=== PATIENT | male | born 1955 | race Caucasian/White ===

== ENCOUNTER → 2016-03-06 | Outpatient (CLI) | payer OTHER ==
--- NOTE | 2016-03-06 15:29 | XR ---
EXAMINATION TYPE: XR cervical spine comp DATE OF EXAM: 03/06/2016 3:24 PM COMPARISON: NONE HISTORY: Pain Odontoid, frontal, lateral, and bilateral oblique views of the cervical spine are submitted. The odontoid is intact. There are no compression deformities. The prevertebral soft tissue structur es are within normal limits. Calcification soft tissue the neck likely related carotid artery. Emphy sematous changes involving the lung apices. Postsurgical change is seen at levels L4-C6.. Anterior osteophytes seen at levels C2-C4. Prevertebral soft tissue structures are within normal limits. Facet arthropathy at all levels. IMPRESSION: 1. Postsurgical change in anatomic alignment 2. Multilevel facet arthropathy and hypertrophic spur formation with ankylosis noted at C6-C7.
--- NOTE | 2016-03-06 15:30 | XR ---
EXAM TYPE: LUMBAR SPINE X RAY SERIES COMPARISON: NONE HISTORY: Pain FINDINGS: Alignment is anatomic. The pedicles are intact. The transverse processes are intact. There is no s pondylolysis or spondylolisthesis. Hypertrophic changes are seen at all levels with severe facet art hropathy at levels L4-S1. Mild degenerative disc disease at levels L2-L4 with moderate to severe nolasco ges L4-5. Spina bifida occulta lumbosacral junction. IMPRESSION: 1. Multilevel degenerative disc disease with severe changes at levels L4-L5. 2. Multilevel facet arthropathy..
== END | disposition home or self-care (01) ==
LOC: RADXRMAIN 14:58
PROVIDERS: ATTEND Family Medicine
DX: M51.36 Other intervertebral disc degeneration, lumbar region (principal); M46.86 Other specified inflammatory spondylopathies, lumbar region; M46.82 Other specified inflammatory spondylopathies, cervical region; M46.02 Spinal enthesopathy, cervical region; M43.22 Fusion of spine, cervical region
CPT/HCPCS: 72050; 72110

== ENCOUNTER → 2016-08-02 | Outpatient (CLI) | payer OTHER ==
[2016-08-02 17:30] LABS: Cholesterol 154 mg/dL (<200); Creatine Kinase 312 U/L (55-170); HDL Cholesterol 65 mg/dL (40-60); Triglycerides 77 mg/dL (<150)
== END | disposition home or self-care (01) ==
LOC: LABWHC1 16:41
PROVIDERS: ATTEND Family Medicine
DX: E78.01 Familial hypercholesterolemia (principal)
CPT/HCPCS: 36415; 80061; 82550

== ENCOUNTER → 2016-09-18 | Outpatient (CLI) | payer OTHER ==
--- NOTE | 2016-09-18 18:11 | CT ---
EXAMINATION TYPE: CT chest w con DATE OF EXAM: 09/18/2016 COMPARISON: NONE HISTORY: Per patient abnormal CXR CT DLP: 370.6 mGycm Automated exposure control for dose reduction was used. CONTRAST: CT scan of the chest is performed with IV Contrast, patient injected with 100 mL of Omnipaque 300. FINDINGS: There is diffuse bullous emphysema that is worse in the right upper lobe. There is consolidation at t he right posterior lung base. There is right pleural effusion. Heart size is normal. There is no tona cardial effusion. There is no mediastinal adenopathy. There is no evidence of aortic aneurysm or dissection. Thoracic a rod is atheromatous. There are no hilar masses. I see no obvious filling defect in the pulmonary art eries. The bony thorax is intact. IMPRESSION: Bullous pulmonary emphysema. Wedge-shaped 5 x 4 cm area of consolidation in the right lo wer lobe with pleural thickening. This probably relates to inflammatory disease. Atherosclerotic vasc ular disease.
== END ==
LOC: RADCTMAIN 17:23
PROVIDERS: ATTEND Family Medicine
DX: J43.9 Emphysema, unspecified (principal); J92.9 Pleural plaque without asbestos; I70.90 Unspecified atherosclerosis
CPT/HCPCS: 71260; Q9967

== ENCOUNTER → 2016-09-24 | Outpatient (CLI) | payer OTHER ==
[2016-09-24 17:18] LABS: Basophils # (A) 0.1 k/uL (0-0.2); Basophils % (A) 1 %; CH 34.3; Eosinophils # (A) 0.4 k/uL (0-0.7); Eosinophils % (A) 5 %; HCT 49.3 % (39.0-53.0); HDW 2.15; HGB 16.4 gm/dL (13.0-17.5); Luc # (Auto) 0.24; Luc % (Auto) 3; Lymphocytes # (A) 2.8 k/uL (1.0-4.8); Lymphocytes % (A) 30 %; MCH 34.7 pg (25.0-35.0); MCHC 33.2 g/dL (31.0-37.0); MCV 104.5 fL (80.0-100.0); Macrocytosis Moderate; Mean Platelet Volume 8.1; Monocytes # (A) 0.6 k/uL (0-1.0); Monocytes % (A) 7 %; Neutrophils % (A) 55 %; RBC 4.72 m/uL (4.30-5.90); RDW 15.4 % (11.5-15.5); WBC 9.2 k/uL (3.8-10.6); WBC (Perox) 8.58
[2016-09-24 18:48] LABS: Erythrocyte Sedimentation Rate 9 mm/hr (0-15)
== END | disposition home or self-care (01) ==
LOC: LABWHC1 16:50
PROVIDERS: ATTEND Family Medicine
DX: J18.1 Lobar pneumonia, unspecified organism (principal)
CPT/HCPCS: 36415; 85025; 85652

== ENCOUNTER 2019-04-25 12:44 | Emergency (ER) | payer OTHER ==
[2019-04-25] MEDS ORDERED: SODIUM CHLORIDE 0.9% 1,000 ML IV STA ×2 (12:45)
[2019-04-25 12:54] VITALS: TEMP 97.7
[2019-04-25 13:08] LABS: Basophils # (A) 0.1 k/uL (0-0.2); Basophils % (A) 1 %; Eosinophils # (A) 0.4 k/uL (0-0.7); Eosinophils % (A) 3 %; HCT 48.1 % (39.0-53.0); HGB 15.6 gm/dL (13.0-17.5); Lymphocytes # (A) 1.8 k/uL (1.0-4.8); Lymphocytes % (A) 17 %; MCH 32.8 pg (25.0-35.0); MCHC 32.4 g/dL (31.0-37.0); MCV 101.2 fL (80.0-100.0); Mean Platelet Volume 9.5; Monocytes # (A) 0.6 k/uL (0-1.0); Monocytes % (A) 6 %; Neutrophils # (A) 7.4 k/uL (1.3-7.7); Neutrophils % (A) 72 %; Platelet Count 188 k/uL (150-450); RBC 4.76 m/uL (4.30-5.90); WBC 10.3 k/uL (3.8-10.6)
--- NOTE | 2019-04-25 13:10 | ED ---
Altered Mental Status HPI - General Chief Complaint: Altered Mental Status Stated Complaint: poss CVA Time Seen by Provider: 04/25/19 12:44 Source: EMS, RN notes reviewed, old records reviewed Mode of arrival: EMS - History of Present Illness Initial Comments: This is a 63-year-old male with an unknown history other than a history of heavy drinking in the past and per old charting a solitary lung nodule was last seen well approximately midnight last night he was found prior to arrival line on his right side of his basement floor. It is unknown how long he was there. Per p aramedics he seems a have left facial droop and right upper extremity hemiplegia he was able move his other extremities somewhat he was confused. Unable answer questions. His glucose was adequate no fever reported. He did have some abrasion on the right side of his face. No other injuries reported this time no other findings. MD Complaint: altered mental status, decreased responsiveness, weakness - Related Data Allergies Allergy/AdvReac Type Severity Reaction Status Date / Time No Known Allergies Allergy Verified 04/25/19 12:46 Review of Systems ROS Statement: Those systems with pertinent positive or pertinent negative responses have been documented in the HPI. ROS Other: All systems not noted in ROS Statement are negative. Limitations: ROS unobtainable due to patients medical condition Past Medical History History of Any Multi-Drug Resistant Organisms: None Reported Past Psychological History: No Psychological Hx Reported Smoking Status: Unknown if ever smoked Past Alcohol Use History: Heavy Past Drug Use History: None Reported General Exam - General Exam Comments Initial Comments: This is a well-developed sec appearing male who was awake confused and unable answer questions. Limitations: language barrier, physical limitation General appearance: anxious, lethargic Head exam: Present: normocephalic (Abrasion seen to the right lateral orbit no active bleeding no step-off or crepitation no suture repair indicated) Eye exam: Present: normal appearance, PERRL, EOMI. Absent: scleral icterus, conjunctival injection, periorbital swelling ENT exam: Present: mucous membranes dry, other (Evidence of some left facial asymmetry compared to the right) Neck exam: Present: normal inspection, full ROM, other (No stridor JVD or bruits). Absent: tenderness, meningismus, lymphadenopathy Respiratory exam: Present: normal lung sounds bilaterally. Absent: respiratory distress, wheezes, rales, rhonchi, stridor Cardiovascular Exam: Present: regular rate, normal rhythm, normal heart sounds. Absent: systolic murmur, diastolic murmur, rubs, gallop, clicks GI/Abdominal exam: Present: soft, normal bowel sounds. Absent: distended, tenderness, guarding, rebound, rigid, bruit, pulsatile mass Extremities exam: Present: normal capillary refill. Absent: full ROM (Right upper extremity is flaccid with some evidence of decerebrate posturing), tenderness, pedal edema, joint swelling, calf tenderness Back exam: Present: normal inspection Neurological exam: Present: alert, altered, motor sensory deficit. Absent: CN II-XII intact Psychiatric exam: Present: other (Unable to evaluate) Skin exam: Present: warm, dry, normal color. Absent: rash Course Vital Signs 04/25/19 04/25/19 04/25/19 12:45 12:46 13:00 Temperature 97.7 F 97.7 F Pulse Rate 90 90 87 Respiratory 16 16 26 H Rate Blood Pressure 156/93 156/93 145/101 O2 Sat by Pulse 98 98 97 Oximetry - Reevaluation(s) Reevaluation #1: 04/25/19 14:17 I did reevaluate patient on multiple occasions her seize be minimal improvement other than with hydration and oxygen. Patient still remains aphasic with right upper extremity hemiplegia. 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 This is per the patient's family. Reevaluation #2: 04/25/19 14:21 Patient is a drinker he has not had any alcohol in one half weeks and does smoke he does smoke small cigars at this time of a 1 pack per day. Medical Decision Making - Medical Decision Making The patient's had minimal improvement thus far since arrival in emergency department last known well time was approximately midnight this past evening. Patient was evaluated by Dr. Pulido via telemedicine the. Patient will be transported to [facility] for further evaluation and [facility]. The family is well aware of risk factors and are in agreement with this. I did discuss this with the patient's daughter and . There is evidence on CAT scan of the middle cerebral artery occlusion of the study was not clear. Patient did have an NIH initially of 21 he remains a 21 per score system please see the attached score she - Lab Data Result diagrams: 04/25/19 12:51 04/25/19 12:51 Lab Results 04/25/19 04/25/19 04/25/19 Range/Units 12:51 12:51 12:51 WBC 10.3 (3.8-10.6) k/uL RBC 4.76 (4.30-5.90) m/uL Hgb 15.6 (13.0-17.5) gm/dL Hct 48.1 (39.0-53.0) % MCV 101.2 H (80.0-100.0) fL MCH 32.8 (25.0-35.0) pg MCHC 32.4 (31.0-37.0) g/dL RDW 13.0 (11.5-15.5) % Plt Count 188 (150-450) k/uL Neutrophils % 72 % Lymphocytes % 17 % Monocytes % 6 % Eosinophils % 3 % Basophils % 1 % Neutrophils # 7.4 (1.3-7.7) k/uL Lymphocytes # 1.8 (1.0-4.8) k/uL Monocytes # 0.6 (0-1.0) k/uL Eosinophils # 0.4 (0-0.7) k/uL Basophils # 0.1 (0-0.2) k/uL PT (9.0-12.0) sec INR (<1.2) APTT (22.0-30.0) sec Sodium 142 (137-145) mmol/L Potassium 4.2 (3.5-5.1) mmol/L Chloride 109 H (98-107) mmol/L Carbon Dioxide 23 (22-30) mmol/L Anion Gap 10 mmol/L BUN 28 H (9-20) mg/dL Creatinine 1.11 (0.66-1.25) mg/dL Est GFR (CKD-EPI)AfAm 81 (>60 ml/min/1.73 sqM) Est GFR (CKD-EPI)NonAf 70 (>60 ml/min/1.73 sqM) Glucose 105 H (74-99) mg/dL Calcium 9.0 (8.4-10.2) mg/dL Magnesium 1.9 (1.6-2.3) mg/dL Total Bilirubin 0.6 (0.2-1.3) mg/dL AST 22 (17-59) U/L ALT 14 (4-49) U/L Alkaline Phosphatase 83 (38-126) U/L Ammonia <9 (<30) umol/L Creatine Kinase 174 H (55-170) U/L Troponin I (0.000-0.034) ng/mL Total Protein 7.4 (6.3-8.2) g/dL Albumin 3.9 (3.5-5.0) g/dL Lipase 220 (23-300) U/L Urine Color Urine Appearance (Clear) Urine pH (5.0-8.0) Ur Specific [place] (1.001-1.035) Urine Protein (Negative) Urine Glucose (UA) (Negative) Urine Ketones (Negative) Urine Blood (Negative) Urine Nitrite (Negative) Urine Bilirubin (Negative) Urine Urobilinogen (<2.0) mg/dL Ur Leukocyte Esterase (Negative) Urine RBC (0-5) /hpf Urine WBC (0-5) /hpf Hyaline Casts (0-2) /lpf Urine Mucus (None) /hpf Urine Opiates Screen (NotDetected) Ur Oxycodone Screen (NotDetected) Urine Methadone Screen (NotDetected) Ur Propoxyphene Screen (NotDetected) Ur Barbiturates Screen (NotDetected) U Tricyclic Antidepress (NotDetected) Ur Phencyclidine Scrn (NotDetected) Ur Amphetamines Screen (NotDetected) U Methamphetamines Scrn (NotDetected) U Benzodiazepines Scrn (NotDetected) Urine Cocaine Screen (NotDetected) U Marijuana (THC) Screen (NotDetected) Serum Alcohol <10 mg/dL 04/25/19 04/25/19 04/25/19 Range/Units 12:51 12:51 Unknown WBC (3.8-10.6) k/uL RBC (4.30-5.90) m/uL Hgb (13.0-17.5) gm/dL Hct (39.0-53.0) % MCV (80.0-100.0) fL MCH (25.0-35.0) pg MCHC (31.0-37.0) g/dL RDW (11.5-15.5) % Plt Count (150-450) k/uL Neutrophils % % Lymphocytes % % Monocytes % % Eosinophils % % Basophils % % Neutrophils # (1.3-7.7) k/uL Lymphocytes # (1.0-4.8) k/uL Monocytes # (0-1.0) k/uL Eosinophils # (0-0.7) k/uL Basophils # (0-0.2) k/uL PT 11.7 (9.0-12.0) sec INR 1.2 H (<1.2) APTT 25.4 (22.0-30.0) sec Sodium (137-145) mmol/L Potassium (3.5-5.1) mmol/L Chloride (98-107) mmol/L Carbon Dioxide (22-30) mmol/L Anion Gap mmol/L BUN (9-20) mg/dL Creatinine (0.66-1.25) mg/dL Est GFR (CKD-EPI)AfAm (>60 ml/min/1.73 sqM) Est GFR (CKD-EPI)NonAf (>60 ml/min/1.73 sqM) Glucose (74-99) mg/dL Calcium (8.4-10.2) mg/dL Magnesium (1.6-2.3) mg/dL Total Bilirubin (0.2-1.3) mg/dL AST (17-59) U/L ALT (4-49) U/L Alkaline Phosphatase (38-126) U/L Ammonia (<30) umol/L Creatine Kinase (55-170) U/L Troponin I <0.012 (0.000-0.034) ng/mL Total Protein (6.3-8.2) g/dL Albumin (3.5-5.0) g/dL Lipase (23-300) U/L Urine Color Yellow Urine Appearance Clear (Clear) Urine pH 5.5 (5.0-8.0) Ur Specific [place] 1.033 (1.001-1.035) Urine Protein 1+ H (Negative) Urine Glucose (UA) Negative (Negative) Urine Ketones 1+ H (Negative) Urine Blood Negative (Negative) Urine Nitrite Negative (Negative) Urine Bilirubin Negative (Negative) Urine Urobilinogen 3.0 (<2.0) mg/dL Ur Leukocyte Esterase Negative (Negative) Urine RBC <1 (0-5) /hpf Urine WBC 1 (0-5) /hpf Hyaline Casts 1 (0-2) /lpf Urine Mucus Rare H (None) /hpf Urine Opiates Screen Not Detected (NotDetected) Ur Oxycodone Screen Not Detected (NotDetected) Urine Methadone Screen Not Detected (NotDetected) Ur Propoxyphene Screen Not Detected (NotDetected) Ur Barbiturates Screen Not Detected (NotDetected) U Tricyclic Antidepress Not Detected (NotDetected) Ur Phencyclidine Scrn Not Detected (NotDetected) Ur Amphetamines Screen Not Detected (NotDetected) U Methamphetamines Scrn Not Detected (NotDetected) U Benzodiazepines Scrn Not Detected (NotDetected) Urine Cocaine Screen Not Detected (NotDetected) U Marijuana (THC) Screen Not Detected (NotDetected) Serum Alcohol mg/dL - EKG Data -: EKG Interpreted by Me (Sinus rhythm 87 ME interval 160 QRS duration 88 QT/QTC 374/450 artifact pre) - Radiology Data Radiology results: report reviewed (I did review the imaging and reports no evidence of acute bleeding or mass effect or solid tumors. The MCA as stated above. X-ray shows no infiltrate the repeat after NG tube placement reveals the tooth to be in the stomach.), image reviewed Critical Care Time Critical Care Time: Yes Critical Care Time: 49 minutes of critical care time which includes initial presentation with history physical labs x-rays multiple reevaluation the patient. Discussed with family members. Discussion with the interventional neurologist. Is question with the emergency department at [facility]. Discussion with the transporting paramedics both upon arrival and before the disposition. Review of old charting was available and documentation of the above. Disposition Clinical Impression: Cerebrovascular accident (CVA), Smoking, History of alcohol abuse Disposition: OTHER INSTITUTION NOT DEFINED Condition: Serious Referrals: None,Stated [Primary Care Provider] - 1-2 days - Out of Hospital Transfer - Req. Specs Out of Hospital Transfer - Requested Specifics: Neurological ICU
[2019-04-25 13:13] LABS: ALT 14 U/L (4-49); AST 22 U/L (17-59); African American GFR (CKD) 81 (>60 ml/min/1.73 sqM); Albumin 3.9 g/dL (3.5-5.0); Alcohol <10 mg/dL; Alkaline Phosphatase 83 U/L (38-126); Anion Gap 10 mmol/L; Blood Urea Nitrogen 28 mg/dL (9-20); Carbon Dioxide 23 mmol/L (22-30); Chloride 109 mmol/L (98-107); Creatine Kinase 174 U/L (55-170); Glucose 105 mg/dL (74-99); INR 1.2 (<1.2); Magnesium 1.9 mg/dL (1.6-2.3); Non-African American GFR(CKD) 70 (>60 ml/min/1.73 sqM); Partial Thromboplastin Time 25.4 sec (22.0-30.0); Potassium 4.2 mmol/L (3.5-5.1); Prothrombin Time 11.7 sec (9.0-12.0); Sodium 142 mmol/L (137-145); Total Bilirubin 0.6 mg/dL (0.2-1.3); Total Protein 7.4 g/dL (6.3-8.2)
--- NOTE | 2019-04-25 13:22 | CT ---
EXAMINATION TYPE: CT brain wo con for TPA DATE OF EXAM: 04/25/2019 COMPARISON: NONE HISTORY: Neuro deficit CT DLP: 1102.8 mGycm Automated exposure control for dose reduction was used. FINDINGS: There are mild, generalized changes of sulcal prominence and ventriculomegaly compatible with atrophi c change. There is diffuse periventricular white matter lucency, compatible with chronic white matter ischemic change. There is evidence of a previous lacunar infarct in the posterior limb of the manager internship al capsule on the left. No other focal lesions are seen. There is no mass effect or midline shift. I do not see evidence of intracranial blood. There is mild mucoperiosteal thickening involving the medial wall of the left maxillary sinus is a 1. 7 cm retention cyst or polyp in the inferior portion of the left maxillary sinus. Visualized portions of the sinuses and mastoids are otherwise clear. The bony calvarium is intact. IMPRESSION: 1. NO ACUTE INTRACRANIAL ABNORMALITY. 2. OLD LACKMAN IN THE POSTERIOR LIMB LEFT INTERNAL CAPSULE. 3. MILD DEGENERATIVE CHANGE.
[2019-04-25 13:33] LABS: Appearance,Urine Clear (Clear); Bilirubin,Urine Negative (Negative); Blood,Urine Negative (Negative); Color,Urine Yellow; Glucose,Urine (UA) Negative (Negative); Hyaline Casts,Urine 1 /lpf (0-2); Ketones,Urine 1+ (Negative); Leukocyte Esterase,Urine Negative (Negative); Mucus,Urine Rare /hpf; Nitrite,Urine Negative (Negative); PH, Urine 5.5 (5.0-8.0); Protein,Urine 1+ (Negative); RBC,Urine <1 /hpf (0-5); Specific Gravity,Urine 1.033 (1.001-1.035); WBC,Urine 1 /hpf (0-5)
[2019-04-25] MEDS ORDERED: TICAGRELOR 90 MG TAB NG-TUBE STA (13:43)
[2019-04-25] MEDS ORDERED: ASPIRIN 81 MG NG-TUBE STA (13:44)
[2019-04-25 13:54] LABS: Amphetamine Screen,Urine Not Detected (NotDetected); Barbiturate Screen,Urine Not Detected (NotDetected); Benzodiazepines Screen,Urine Not Detected (NotDetected); Cocaine Screen,Urine Not Detected (NotDetected); Methadone Screen, Urine Not Detected (NotDetected); Opiate Screen,Urine Not Detected (NotDetected); Oxycodone Screen, Urine Not Detected (NotDetected); Phencyclidine Screen,Urine Not Detected (NotDetected); Tricyclic Antidepressant,Urine Not Detected (NotDetected); Urn Cannabinoid Scrn Not Detected (NotDetected)
--- NOTE | 2019-04-25 14:24 | CT ---
EXAMINATION TYPE: CT angio head neck DATE OF EXAM: 04/25/2019 COMPARISON: HISTORY: Neuro deficit CT DLP: 453.3 mGycm Automated exposure control for dose reduction was used. CONTRAST: Performed with IV Contrast, patient injected with 65 mL of Isovue 370. Multiple axial sections were obtained from the aortic arch to the vertex of the brain with intravenou s contrast. There are 3-D post processed images. There is normal branching pattern of the great vessels on the aortic arch. There is bilateral arteria l flow in the subclavian arteries. There is arterial flow in the common internal and external carotid arteries bilaterally. There is some plaque formation at the carotid artery bifurcations. There is es timated 50% stenosis at the proximal right internal carotid artery. There is approximately 10% stenos is origin left internal carotid artery. There is bilateral arterial flow in the vertebral arteries. T here is no evidence of carotid or vertebral artery aneurysm or dissection. There is arterial flow in the anterior middle and posterior cerebral arteries bilaterally. There is a rterial flow in the vertebrobasilar artery system. I see no evidence of intracranial aneurysm or neov ascularity. There is decreased distal flow in the left middle cerebral artery. There is occlusion of the left middle cerebral artery at the anterior sylvian fissure. There is normal contrast opacificati on of the venous sinuses. IMPRESSION: Plaque formation at the carotid artery bifurcations and estimated 50% stenosis of the proximal right internal carotid artery and 10% stenosis proximal left internal carotid artery. 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
--- NOTE | 2019-04-25 14:25 | XR ---
EXAMINATION TYPE: XR chest 1V portable DATE OF EXAM: 04/25/2019 COMPARISON: NONE HISTORY: Check tube placement TECHNIQUE: FINDINGS: There is nasogastric tube with the tip in the body of the stomach. There is blunting of rig ht costophrenic angle. There is patchy infiltrate right lower lobe. No heart failure. There are chest leads. IMPRESSION: Patchy right lower lobe pneumonia and right pleural effusion.
[2019-04-25 14:28] VITALS: RESP 18
[2019-04-25 14:54] VITALS: BP 165/97; PULSE 87
== END 2019-04-25 15:00 | disposition short-term general hospital (02) ==
LOC: EC 12:44
DX: I63.9 Cerebral infarction, unspecified (principal); F10.11 Alcohol abuse, in remission; S00.211A Abrasion of right eyelid and periocular area, initial encounter; R29.721 NIHSS score 21; F17.200 Nicotine dependence, unspecified, uncomplicated; Z53.8 Procedure and treatment not carried out for other reasons; X58.XXXA Exposure to other specified factors, initial encounter
CPT/HCPCS: 36415; 93005; 80053; 82140; 82550; 83690; 83735; 84484; 85025; 85610; 85730; 81001; 80306; 80320; 71045; 70496; 70450; 70498; 99291; 96360; 96361; Q9967

== ENCOUNTER 2020-04-25 22:25 | Emergency (ER) | payer MEDICARE ==
[2020-04-25 22:35] VITALS: TEMP 98.2
[2020-04-25] MEDS ORDERED: cloNIDine HCL 0.2 MG TAB PO STA (23:21)
--- NOTE | 2020-04-25 23:24 | ED ---
Extremity Problem HPI - General Chief complaint: Extremity Problem,Nontraumatic Stated complaint: Weakness Time Seen by Provider: 04/25/20 22:55 Source: patient Mode of arrival: wheelchair Limitations: no limitations - History of Present Illness Initial comments: This patient is a 64-year-old man with history of previous ischemic stroke, who presents to be evaluated for bilateral foot swelling. The patient had noticed that his feet were seeming to be a bit swollen over the past 2 months though it has become more pronounced for the past couple of days. Denies pain associated with that. No chest pain, dyspnea, palpitations. He has not noted a change in urination or bowel movements. MD Complaint: extremity swelling -: month(s) Location: bilateral lower extremity Radiation: none Consistency: constant Improves with: nothing Worsens with: nothing Associated Symptoms: denies other symptoms - Related Data Previous Rx's Medication Instructions Recorded Furosemide [Lasix] 20 mg PO DAILY #7 tab 04/26/20 Allergies Allergy/AdvReac Type Severity Reaction Status Date / Time No Known Allergies Allergy Verified 04/25/20 22:35 Review of Systems ROS Statement: Those systems with pertinent positive or pertinent negative responses have been documented in the HPI. ROS Other: All systems not noted in ROS Statement are negative. Constitutional: Denies: fever, chills, weakness Respiratory: Denies: cough, dyspnea Cardiovascular: Reports: edema. Denies: chest pain, palpitations, orthopnea, syncope Gastrointestinal: Denies: abdominal pain, nausea, vomiting, melena, hematochezia Genitourinary: Denies: dysuria, frequency, hematuria Musculoskeletal: Denies: back pain Skin: Denies: rash Neurological: Denies: headache, weakness, numbness Past Medical History Past Medical History: CVA/TIA Additional Past Medical History / Comment(s): stroke 2019, loop recorder 2020 History of Any Multi-Drug Resistant Organisms: None Reported Past Surgical History: No Surgical Hx Reported, Orthopedic Surgery Past Psychological History: No Psychological Hx Reported Smoking Status: Former smoker Past Alcohol Use History: Occasional Past Drug Use History: None Reported General Exam Limitations: no limitations General appearance: alert, in no apparent distress Head exam: Present: atraumatic, normocephalic Eye exam: Present: normal appearance. Absent: scleral icterus, conjunctival injection Respiratory exam: Present: normal lung sounds bilaterally. Absent: respiratory distress, wheezes, rales, rhonchi, stridor Cardiovascular Exam: Present: regular rate, normal rhythm, normal heart sounds. Absent: systolic murmur, diastolic murmur, rubs, gallop GI/Abdominal exam: Present: soft. Absent: distended, tenderness, guarding, rebound, rigid, mass Extremities exam: Present: normal inspection, normal capillary refill, pedal edema. Absent: calf tenderness Back exam: Present: normal inspection Neurological exam: Present: alert Skin exam: Present: warm, dry, intact, normal color. Absent: rash Course Vital Signs 04/25/20 04/25/20 04/26/20 22:30 23:55 00:51 Temperature 98.2 F Pulse Rate 85 82 Respiratory 18 16 Rate Blood Pressure 166/99 152/96 137/92 O2 Sat by Pulse 98 97 Oximetry Medical Decision Making - Lab Data Result diagrams: 04/25/20 23:43 04/25/20 23:43 Lab Results 04/25/20 04/25/20 04/25/20 Range/Units 23:43 23:43 23:43 WBC 8.7 (3.8-10.6) k/uL RBC 4.16 L (4.30-5.90) m/uL Hgb 13.7 (13.0-17.5) gm/dL Hct 40.8 (39.0-53.0) % MCV 98.0 (80.0-100.0) fL MCH 32.8 (25.0-35.0) pg MCHC 33.5 (31.0-37.0) g/dL RDW 12.9 (11.5-15.5) % Plt Count 225 (150-450) k/uL MPV 8.5 Neutrophils % 57 % Lymphocytes % 29 % Monocytes % 7 % Eosinophils % 4 % Basophils % 1 % Neutrophils # 5.0 (1.3-7.7) k/uL Lymphocytes # 2.5 (1.0-4.8) k/uL Monocytes # 0.6 (0-1.0) k/uL Eosinophils # 0.4 (0-0.7) k/uL Basophils # 0.1 (0-0.2) k/uL D-Dimer (<0.60) mg/L FEU Sodium 138 (137-145) mmol/L Potassium 4.5 (3.5-5.1) mmol/L Chloride 101 (98-107) mmol/L Carbon Dioxide 30 (22-30) mmol/L Anion Gap 7 mmol/L BUN 29 H (9-20) mg/dL Creatinine 1.43 H (0.66-1.25) mg/dL Est GFR (CKD-EPI)AfAm 59 (>60 ml/min/1.73 sqM) Est GFR (CKD-EPI)NonAf 51 (>60 ml/min/1.73 sqM) Glucose 101 H (74-99) mg/dL Calcium 9.2 (8.4-10.2) mg/dL Magnesium 1.9 (1.6-2.3) mg/dL Total Bilirubin 0.3 (0.2-1.3) mg/dL AST 23 (17-59) U/L ALT 21 (4-49) U/L Alkaline Phosphatase 91 (38-126) U/L Troponin I <0.012 (0.000-0.034) ng/mL NT-Pro-B Natriuret Pep pg/mL Total Protein 7.2 (6.3-8.2) g/dL Albumin 3.8 (3.5-5.0) g/dL 04/25/20 04/25/20 Range/Units 23:43 23:43 WBC (3.8-10.6) k/uL RBC (4.30-5.90) m/uL Hgb (13.0-17.5) gm/dL Hct (39.0-53.0) % MCV (80.0-100.0) fL MCH (25.0-35.0) pg MCHC (31.0-37.0) g/dL RDW (11.5-15.5) % Plt Count (150-450) k/uL MPV Neutrophils % % Lymphocytes % % Monocytes % % Eosinophils % % Basophils % % Neutrophils # (1.3-7.7) k/uL Lymphocytes # (1.0-4.8) k/uL Monocytes # (0-1.0) k/uL Eosinophils # (0-0.7) k/uL Basophils # (0-0.2) k/uL D-Dimer 0.47 (<0.60) mg/L FEU Sodium (137-145) mmol/L Potassium (3.5-5.1) mmol/L Chloride (98-107) mmol/L Carbon Dioxide (22-30) mmol/L Anion Gap mmol/L BUN (9-20) mg/dL Creatinine (0.66-1.25) mg/dL Est GFR (CKD-EPI)AfAm (>60 ml/min/1.73 sqM) Est GFR (CKD-EPI)NonAf (>60 ml/min/1.73 sqM) Glucose (74-99) mg/dL Calcium (8.4-10.2) mg/dL Magnesium (1.6-2.3) mg/dL Total Bilirubin (0.2-1.3) mg/dL AST (17-59) U/L ALT (4-49) U/L Alkaline Phosphatase (38-126) U/L Troponin I (0.000-0.034) ng/mL NT-Pro-B Natriuret Pep 442 pg/mL Total Protein (6.3-8.2) g/dL Albumin (3.5-5.0) g/dL Disposition Clinical Impression: Edema of lower extremity Disposition: HOME SELF-CARE Condition: Good Instructions (If sedation given, give patient instructions): Leg Edema (ED) Prescriptions: Furosemide [Lasix] 20 mg PO DAILY #7 tab Is patient prescribed a controlled substance at d/c from ED?: No Referrals: Robert Tipton MD [Primary Care Provider] - 1-2 days
--- NOTE | 2020-04-25 23:49 | XR ---
EXAMINATION TYPE: XR chest 2V DATE OF EXAM: 04/25/2020 COMPARISON: Today HISTORY: Edema. Chest pain TECHNIQUE: 2 views FINDINGS: There is some infiltrate at the right lung base. There is a fourth similar rounded masslike density over the lower thoracic spine on the lateral view. This is probably in the right lower lobe right paraspinal region. There is no heart failure. There are no hilar masses. Heart size is normal. The bony thorax is intact . IMPRESSION: There is infiltrate and pleural thickening at the right lung base unchanged compared to e xam earlier today. This density is also present on the old CT scan of 09/18/2016. This is probably mos tly scarring. The masslike density seen on the lateral view is also evident on the old CT scan and co nsistent with scarring.
[2020-04-25 23:52] LABS: Basophils # (A) 0.1 k/uL (0-0.2); Basophils % (A) 1 %; Eosinophils # (A) 0.4 k/uL (0-0.7); Eosinophils % (A) 4 %; HCT 40.8 % (39.0-53.0); HGB 13.7 gm/dL (13.0-17.5); Lymphocytes # (A) 2.5 k/uL (1.0-4.8); Lymphocytes % (A) 29 %; MCH 32.8 pg (25.0-35.0); MCHC 33.5 g/dL (31.0-37.0); Mean Platelet Volume 8.5; Monocytes # (A) 0.6 k/uL (0-1.0); Monocytes % (A) 7 %; Neutrophils % (A) 57 %; Platelet Count 225 k/uL (150-450); RBC 4.16 m/uL (4.30-5.90); RDW 12.9 % (11.5-15.5); WBC 8.7 k/uL (3.8-10.6)
[2020-04-26 00:01] LABS: Albumin 3.8 g/dL (3.5-5.0); Calcium 9.2 mg/dL (8.4-10.2); Magnesium 1.9 mg/dL (1.6-2.3); Potassium 4.5 mmol/L (3.5-5.1); Total Bilirubin 0.3 mg/dL (0.2-1.3); Total Protein 7.2 g/dL (6.3-8.2)
[2020-04-26 00:18] VITALS: RESP 16
[2020-04-26] MEDS ORDERED: FUROSEMIDE 10 MG/ML 2 ML VIAL IV STA (00:51)
[2020-04-26 01:56] LABS: Appearance,Urine Clear (Clear); Bilirubin,Urine Negative (Negative); Blood,Urine Negative (Negative); Color,Urine Light Yellow; Glucose,Urine (UA) Negative (Negative); Ketones,Urine Negative (Negative); Leukocyte Esterase,Urine Negative (Negative); Nitrite,Urine Negative (Negative); Protein,Urine Negative (Negative); Specific Gravity,Urine 1.015 (1.001-1.035); Urobilinogen,Urine <2.0 mg/dL (<2.0)
[2020-04-26 02:02] VITALS: BP 141/88; PULSE 78
== END 2020-04-26 01:48 | disposition home or self-care (01) ==
LOC: EC 22:25 → EEVIPCON 22:25 → SUPCPDRO 22:25 → EC 04-26 01:48
DX: R60.0 Localized edema (principal); Z87.891 Personal history of nicotine dependence; Z86.73 Personal history of transient ischemic attack (TIA), and cerebral infarction without residual deficits
CPT/HCPCS: 36415; 85379; 83880; 80053; 83735; 84484; 85025; 81003; 71046; 99285; 96374; J1940

== ENCOUNTER 2020-11-24 19:36 | Emergency (ER) | payer MEDICARE ==
[2020-11-24 19:57] VITALS: RESP 20; TEMP 97.9
[2020-11-24] MEDS ORDERED: niCARdipine 20 MG in SODIUM CHLORIDE 0.9% 192 ML IV SCH (20:00)
--- NOTE | 2020-11-24 20:07 | ED ---
General Adult HPI - General Chief complaint: Neuro Symptoms/Deficit Stated complaint: Possible Stroke Time Seen by Provider: 11/24/20 19:38 Source: EMS, RN notes reviewed, old records reviewed Mode of arrival: EMS Limitations: no limitations - History of Present Illness Initial comments: Patient is a 65 her old male with past medical history remarkable for prior CVA with residual right-sided deficits, and laboratory base him with a walker, not on blood thinners who presents emergency Department with strokelike symptoms. EMS called ahead and stated that the patient was sided facial droop, left arm weakness, left leg weakness. She is uncertain when last known well was. Patient was last seen normal 4 hours prior to arrival. As stated above, he is not on blood thinners. Patient does not know if he fell. He states that he was on the ground in the bathroom and was found covered in feces by EMS. He currently has no Acute complaints, denying chest pain, short of breath, abdominal pain, nausea, vomiting. Denies any blurry vision. Endorses weakness in left upper and left lower extremity is. He is uncertain when the symptoms started but he does know he was in the bathroom and they started. He otherwise has no acute complaints at this time. Stroke pager was activated upon arrival to the emergency department he was taken to CT immediately. - Related Data Previous Rx's Medication Instructions Recorded Furosemide [Lasix] 20 mg PO DAILY #7 tab 04/26/20 Allergies Allergy/AdvReac Type Severity Reaction Status Date / Time No Known Allergies Allergy Verified 04/25/20 22:35 Review of Systems ROS Statement: Those systems with pertinent positive or pertinent negative responses have been documented in the HPI. Review of Systems: CONST: Denies fever EYES: Denies blurry vision ENT: Denies nasal congestion C/V: Denies Chest pain RESP: Denies shortness of breath GI: Denies abdominal pain : Denies dysuria SKIN: Denies rash. MSK: Denies joint pain. NEURO: Endorses weakness ROS Other: All systems not noted in ROS Statement are negative. Past Medical History Past Medical History: CVA/TIA Additional Past Medical History / Comment(s): stroke 2019, loop recorder 2020 History of Any Multi-Drug Resistant Organisms: None Reported Past Surgical History: No Surgical Hx Reported, Orthopedic Surgery Past Psychological History: No Psychological Hx Reported Smoking Status: Former smoker Past Alcohol Use History: Occasional Past Drug Use History: None Reported General Exam - General Exam Comments Initial Comments: General: Appears in mild distress secondary to her neurological complaints. HEAD: Normal with no signs of head trauma. No step-offs or deformity of the skull. Negative José sign, negative raccoon eyes. No hemotympanum. EYES: PERRLA, EOMI, conjunctiva normal, no discharge. Pupils are 3 mm and equal bilaterally. ENT: Hearing grossly intact, normal oropharynx. Moist mucous membranes. RESPIRATORY: Clear breath sounds bilaterally. No wheezes, rales, or rhonchi. C/V: It has been on tachycardia with a regular rhythm. S1 and S2 auscultated. Peripheral pulses are 2+ and intact throughout. No peripheral edema. ABD: Abd is soft, nontender, nondistended EXT: No obvious deformity of the extremities. No tenderness to palpation along the spine. Pelvis is stable. SKIN: No rashes or lesions observed on exposed skin. NEURO: Alert and oriented 4. Cranial nerves II through XII are intact. NIH stroke scale is 4, 1 point for left upper extremity drift not hitting the bed and 2 points left lower extremity drift hitting the bed, and 1 point for dysarthria. GCS is 15. Limitations: no limitations Course Vital Signs 11/24/20 19:39 Temperature 97.9 F Pulse Rate 113 H Respiratory 20 Rate Blood Pressure 138/94 O2 Sat by Pulse 96 Oximetry Medical Decision Making - Medical Decision Making Based on the patient's presentation and physical exam, there is concerned for an acute stroke. Stroke pager was activated. Patient already has an IV and was taken immediately to the CT scanner. I speak with the patient's guardian over the phone, Lui, who states the patient is on a blood thinners. His residual deficits. While was on the phone, I was called to the CT scanner and I observed a right thalamic intracranial hemorrhage. I spoke with neuro intervention immediately, Dr. Spring, who requested the patient be transferred to [facility] where neurosurgery is available. Patient will be admitted to the ICU. His only other requested that we be controlled systolic blood pressures with goa ls less than 140-160. He'll be started on a nicardipine drip for his hypertension control. We also obtain basic stroke labs. I spoke to the patient's guardian who was in agreement this plan. I spoke with the patient was in agreement this plan. On reevaluation, NIH stroke scale remains 4. Radiology called and spoke with me, conveying the previously known right thalamic hemorrhagic stroke. CTA imaging is still pending at this time. EKG is remarkable for sinus tachycardia but no signs of acute ischemia. Laboratory studies are still pending at this time. I spoke with the transfer center at [facility] who accepted the patient. I spoke with the accepting physician, Dr. Brar who accepted the patient. Patient will be transferred to the emergency department for admission to the ICU at [facility]. He'll be transferred and serous condition. At this time, patient still has a GCS of 15 is protecting his airway and vital signs are within normal limits and stable. I updated the patient's family regarding the transfer and they were in agreement with the plan. - EKG Data -: EKG Interpreted by Me EKG Comments: 12-lead Electrocardiogram Interpretation Note EKG was reviewed and interpreted by myself. 12-lead ECG performed at 1956 is interpreted by me as revealing sinus tachycardia at a rate of 106 beats per minute. Gordon is normal. CT interval is undetectable 26 ms, QRS duration is 84 ms, QTc is 454 ms.. Patient has an isolated T-wave inversion in lead III. There are no ST segment or T-wave changes otherwise to suggest acute ischemia.. R wave progression across the precordium was satisfactory. By my interpretation this EKG is non-diagnostic for acute ischemia. Critical Care Time Critical Care Time: Yes Total Critical Care Time: 30 Critical Care Time: Upon my evaluation, this patient had a high probability of imminent or life- threatening deterioration due to right thalamic hemorrhagic stroke, which required my direct attention, intervention, and personal management. I have personally provided 30 minutes of critical care time exclusive of time spent on separately billable procedures. Time includes review of laboratory data, radiology results, discussion with consultants, and monitoring for potential decompensation. Interventions were performed as documented in my note. Disposition Clinical Impression: Cerebrovascular accident (CVA), Intracranial hemorrhage, Sinus tachycardia Disposition: OTHER INSTITUTION NOT DEFINED Condition: Serious Is patient prescribed a controlled substance at d/c from ED?: No Referrals: Robert Tipton MD [Primary Care Provider] - 1-2 days - Out of Hospital Transfer - Req. Specs Out of Hospital Transfer - Requested Specifics: Other Emergency Center (Transfer to [facility] for ICU admission and in-house neurosurgery which is not present at our facility.)
--- NOTE | 2020-11-24 20:09 | CT ---
EXAMINATION TYPE: CT brain wo con for TPA DATE OF EXAM: 11/24/2020 COMPARISON: CT head 04/25/2019 HISTORY: Neuro deficits, code stroke, LT side weakness CT DLP: 1112.8 mGycm Automated exposure control for dose reduction was used. FINDINGS: There are 2 x 1.4 x 2 cm hematoma in the right thalamus. There is encephalomalacia of the epidural parietal lobe with ex vacuo dilatation of the occipital hor n of the left lateral ventricle . There is encephalomalacia of the left frontal lobe with ex vacuo di latation of the anterior horn. This of the septal lobe. No midline shift. No hydrocephalus. A distinction is maintained. No osseous abnormality. Mucus retent ion cyst in the left maxillary sinus. Paranasal sinuses and air cells are otherwise well-developed and pneumatized. Next IMPRESSION: 1. There is a 2 x 1.4 x 2 cm hyperdense collection in the right thalamus. 2. Age indeterminate, left supratentorial infarcts. 3. Findings were discussed with emergency room Dr. Quiros by Dr. Liu Shaver on 11/23/2020 at 7:5 5 PM.
--- NOTE | 2020-11-24 20:23 | CT ---
EXAMINATION TYPE: CT angio head neck DATE OF EXAM: 11/24/2020 HISTORY: Neuro deficit. COMPARISON: CT 04/25/2019 CT DLP: 510 mGycm. Automated Exposure Control for Dose Reduction was Utilized. TECHNIQUE: CTA scan of the neck is performed with IV Contrast, patient injected with 65 mL of Isovue 370, axial images are obtained, coronal and sagittal reformatted images are reviewed. 3D reconstruct ed images are created on an independent workstation and reviewed. FINDINGS: Carotid/Vascular Structures: Atherosclerotic disease at the carotid bifurcations with 50% stenosis of the bilateral proximal ICAs There is narrowing of the left M1 segment similar to prior. The bilateral anterior cerebral arteries the right middle cerebral artery and the bilateral posterior cerebral arteries are unremarkable. The vertebrobasilar system is patent. The dural venous sinuses and cerebral veins are patent. No aneurysm. Other: Emphysematous lungs. Hyperdense collection in the right thalamus. IMPRESSION: 1. The left M1 segment is narrowed, to prior. 2. No large vessel occlusion or aneurysm in the head or neck. 3. Atherosclerotic disease at the carotid bifurcations with 50% stenosis of the bilateral proximal I Efren. NASCET criteria was used in interpretation of this exam?
[2020-11-24 20:26] LABS: Glucose,Whole Blood 121 mg/dL (75-99)
[2020-11-24 20:40] LABS: Basophils % (A) 0 %; Eosinophils # (A) 0.1 k/uL (0-0.7); Eosinophils % (A) 0 %; HCT 44.1 % (39.0-53.0); HGB 14.4 gm/dL (13.0-17.5); Lymphocytes # (A) 1.2 k/uL (1.0-4.8); Lymphocytes % (A) 8 %; MCH 33.1 pg (25.0-35.0); MCHC 32.7 g/dL (31.0-37.0); MCV 101.2 fL (80.0-100.0); Macrocytosis Slight; Mean Platelet Volume 9.7; Monocytes # (A) 0.7 k/uL (0-1.0); Monocytes % (A) 4 %; Neutrophils # (A) 13.5 k/uL (1.3-7.7); Neutrophils % (A) 87 %; Platelet Count 229 k/uL (150-450); RBC 4.36 m/uL (4.30-5.90); RDW 13.3 % (11.5-15.5); WBC 15.5 k/uL (3.8-10.6)
[2020-11-24 20:42] VITALS: BP 152/118; PULSE 108
[2020-11-24 20:49] LABS: Potassium 4.7 mmol/L (3.5-5.1)
[2020-11-24 20:50] LABS: Albumin 4.3 g/dL (3.5-5.0); Calcium 9.3 mg/dL (8.4-10.2); Total Bilirubin 0.6 mg/dL (0.2-1.3); Total Protein 7.8 g/dL (6.3-8.2)
[2020-11-24 20:51] LABS: INR 0.9 (<1.2); Partial Thromboplastin Time 22.2 sec (22.0-30.0); Prothrombin Time 10.1 sec (9.0-12.0)
--- NOTE | 2020-11-24 20:55 | XR ---
EXAMINATION TYPE: XR chest 1V portable DATE OF EXAM: 11/24/2020 COMPARISON: Radiograph 04/25/2020 HISTORY: Dyspnea. TECHNIQUE: Single frontal view of the chest is obtained. FINDINGS: Strandy opacities at the right base. There is no focal consolidation, pleural effusion, or pneumothorax seen. The cardiac silhouette size is within normal limits. The osseous structures are intact. Partially visualized ACDF. IMPRESSION: Right basilar atelectasis without an acute process.
[2020-11-24 21:11] LABS: Appearance,Urine Clear (Clear); Bilirubin,Urine Negative (Negative); Blood,Urine Small (Negative); Color,Urine Yellow; Glucose,Urine (UA) Negative (Negative); Hyaline Casts,Urine 3 /lpf (0-2); Ketones,Urine Negative (Negative); Leukocyte Esterase,Urine Negative (Negative); Mucus,Urine Occasional /hpf; Nitrite,Urine Negative (Negative); PH, Urine 5.5 (5.0-8.0); Protein,Urine 1+ (Negative); RBC,Urine 8 /hpf (0-5); Squamous Epithelial Cell,Urine 1 /hpf (0-4); WBC,Urine 4 /hpf (0-5)
== END 2020-11-24 20:44 | disposition other institution (70) ==
LOC: EC 19:36 → EEVIPCON 19:36 → EC 20:44
DX: I63.9 Cerebral infarction, unspecified (principal); I62.9 Nontraumatic intracranial hemorrhage, unspecified; R29.704 NIHSS score 4; R00.0 Tachycardia, unspecified; Z86.73 Personal history of transient ischemic attack (TIA), and cerebral infarction without residual deficits; Z87.891 Personal history of nicotine dependence
CPT/HCPCS: 99285; 36415; 93005; 80053; 84484; 85025; 85610; 85730; 81001; 87635; 71045; 70496; 70450; 70498; Q9967